=== PATIENT | female | born 1950 | race Caucasian/White ===

== ENCOUNTER 2021-01-26 13:55 | Inpatient (IN) ==
[2021-01-26] MEDS ORDERED: Beer can PO SCH (18:00)
[2021-01-26] MEDS: Melatonin 3 MG TABLET PO SCH (20:18)
[2021-01-27] MEDS: *HR* OxyCODONE/APAP 5/325 TABLET PO PRN ×3 (04:01→18:13)
[2021-01-27 05:59] LABS: Basophils % 1.1 %; Eosinophils % 1.1 %; Hematocrit 26.9 % (35.3-44.9); Hemoglobin 9.2 g/dL (11.5-15.4); Lymphocytes # 0.9 K/mcL (0.6-4.6); Lymphocytes % 33.2 %; Mean Corpuscular HGB Conc 34.2 g/dL (31.6-35.5); Mean Corpuscular Hemoglobin 34.2 pg (28.0-33.3); Mean Platelet Volume 9.2 fL (9.4-12.4); Monocytes # 0.6 K/mcL (0.0-1.3); Monocytes % 19.9 %; Platelet Count 164 K/mcL (140-400); Red Blood Count 2.69 M/mcL (3.82-4.97); Red Cell Distribution Width 13.6 % (11.5-14.5); Segmented Neutrophils % 44.7 %; White Blood Count 2.8 K/mcL (4.3-11.1)
[2021-01-27 06:09] LABS: Neutrophils # 1.3 K/mcL (1.6-8.9)
[2021-01-27 06:10] LABS: BUN/Creatinine Ratio 30 (6-26); Blood Urea Nitrogen 14 mg/dL (8-23); Calcium 7.6 mg/dL (8.6-10.3); Carbon Dioxide 31 mEq/L (23-29); Chloride 99 mEq/L (98-107); Glucose 83 mg/dL (70-105); Osmolality,Calculated 282 (280-300); Potassium 3.3 mEq/L (3.5-5.1); Sodium 136 mEq/L (136-145); eGFR For African Americans > 60 (> 60); eGFR For Non-African Americans > 60 (> 60)
[2021-01-27 06:35] LABS: Platelet Estimate Normal (Normal)
[2021-01-27] MEDS ORDERED: atenoloL 50 MG TABLET PO SCH (09:00)
[2021-01-27] MEDS ORDERED: Sennosides/Docusate Sodium TABLET PO PRN ×2 (09:02→15:18)
[2021-01-27] MEDS: Cyanocobalamin (B-12) 1,000 MCG TABLET PO SCH (09:19)
[2021-01-27] MEDS: Cholecalciferol (D-3) 1,000 UNIT (25MCG) TABLET PO SCH (09:20)
[2021-01-27] MEDS ORDERED: Beer can PO SCH (12:00)
[2021-01-27] MEDS: Folic Acid 1 MG TABLET PO SCH (15:49)
[2021-01-27] MEDS: Beer can PO SCH (18:06)
[2021-01-27] MEDS: Melatonin 3 MG TABLET PO SCH (20:42)
[2021-01-28 04:29] LABS: Alanine Aminotransferase 15 Units/L (7-52); Albumin/Globulin Ratio 0.7 (1.1-2.2); Alkaline Phosphatase 143 Units/L (34-104); Aspartate Amino Transferase 27 Units/L (13-39); BUN/Creatinine Ratio 39 (6-26); Bilirubin,Total 0.7 mg/dL (0.3-1.0); Blood Urea Nitrogen 17 mg/dL (8-23); Calcium 7.9 mg/dL (8.6-10.3); Carbon Dioxide 31 mEq/L (23-29); Chloride 98 mEq/L (98-107); Globulin 2.8 g/dL (2.4-3.5); Glucose 103 mg/dL (70-105); Osmolality,Calculated 280 (280-300); Potassium 4.1 mEq/L (3.5-5.1); Sodium 134 mEq/L (136-145); Total Protein 4.8 g/dL (6.4-8.9); eGFR For African Americans > 60 (> 60); eGFR For Non-African Americans > 60 (> 60)
[2021-01-28] MEDS: *HR* Enoxaparin 40 MG/0.4 ML SYRINGE SQ SCH (06:14)
[2021-01-28] MEDS ORDERED: polyethylene glycoL 3350 17 GM POWD.PACK PO PRN (08:30)
[2021-01-28] MEDS: *HR* OxyCODONE/APAP 5/325 TABLET PO PRN ×2 (10:03→22:14)
[2021-01-28] MEDS: Folic Acid 1 MG TABLET PO SCH (10:04)
[2021-01-28] MEDS: atenoloL 50 MG TABLET PO SCH (10:04)
[2021-01-28] MEDS: Cholecalciferol (D-3) 1,000 UNIT (25MCG) TABLET PO SCH (10:04)
[2021-01-28] MEDS: Cyanocobalamin (B-12) 1,000 MCG TABLET PO SCH (10:04)
[2021-01-28] MEDS: Beer can PO SCH (17:59)
[2021-01-28] MEDS: Melatonin 3 MG TABLET PO SCH (22:14)
[2021-01-29] MEDS: *HR* Enoxaparin 40 MG/0.4 ML SYRINGE SQ SCH (06:50)
[2021-01-29] MEDS: Cholecalciferol (D-3) 1,000 UNIT (25MCG) TABLET PO SCH (09:49)
[2021-01-29] MEDS: Cyanocobalamin (B-12) 1,000 MCG TABLET PO SCH (09:49)
[2021-01-29] MEDS: atenoloL 50 MG TABLET PO SCH (09:49)
[2021-01-29] MEDS: Folic Acid 1 MG TABLET PO SCH (09:49)
[2021-01-29] MEDS: *HR* OxyCODONE/APAP 5/325 TABLET PO PRN ×2 (09:52→21:01)
[2021-01-29] MEDS: Beer can PO SCH (17:09)
[2021-01-29] MEDS: Melatonin 3 MG TABLET PO SCH (20:59)
[2021-01-30] MEDS: *HR* Enoxaparin 40 MG/0.4 ML SYRINGE SQ SCH (05:31)
[2021-01-30] MEDS ORDERED: 0.9 % Sodium Chloride 500 ML IVC ONE (08:41)
[2021-01-30] MEDS: Cyanocobalamin (B-12) 1,000 MCG TABLET PO SCH (09:55)
[2021-01-30] MEDS: Folic Acid 1 MG TABLET PO SCH (09:55)
[2021-01-30] MEDS: Cholecalciferol (D-3) 1,000 UNIT (25MCG) TABLET PO SCH (09:55)
[2021-01-30] MEDS: Beer can PO SCH (17:34)
[2021-01-30] MEDS: *HR* OxyCODONE/APAP 5/325 TABLET PO PRN (19:46)
[2021-01-30] MEDS: Melatonin 3 MG TABLET PO SCH (19:47)
[2021-01-31] MEDS: *HR* Enoxaparin 40 MG/0.4 ML SYRINGE SQ SCH (05:43)
[2021-01-31] MEDS ORDERED: atenoloL 25 MG TABLET PO SCH (09:00)
[2021-01-31] MEDS: Folic Acid 1 MG TABLET PO SCH (09:21)
[2021-01-31] MEDS: Cholecalciferol (D-3) 1,000 UNIT (25MCG) TABLET PO SCH (09:21)
[2021-01-31] MEDS: Cyanocobalamin (B-12) 1,000 MCG TABLET PO SCH (09:21)
[2021-01-31] MEDS: Beer can PO SCH (17:44)
[2021-01-31] MEDS: *HR* OxyCODONE/APAP 5/325 TABLET PO PRN (20:43)
[2021-01-31] MEDS: Melatonin 3 MG TABLET PO SCH (20:43)
[2021-02-01] MEDS: *HR* Enoxaparin 40 MG/0.4 ML SYRINGE SQ SCH (05:40)
[2021-02-01] MEDS: Cyanocobalamin (B-12) 1,000 MCG TABLET PO SCH (08:15)
[2021-02-01] MEDS: Folic Acid 1 MG TABLET PO SCH (08:15)
[2021-02-01] MEDS: Cholecalciferol (D-3) 1,000 UNIT (25MCG) TABLET PO SCH (08:16)
[2021-02-01] MEDS: Acetaminophen 325 MG TABLET PO PRN (17:10)
[2021-02-01] MEDS: Beer can PO SCH (17:57)
[2021-02-01] MEDS: Melatonin 3 MG TABLET PO SCH (20:33)
[2021-02-01] MEDS: *HR* OxyCODONE/APAP 5/325 TABLET PO PRN (20:33)
[2021-02-02] MEDS: *HR* Enoxaparin 40 MG/0.4 ML SYRINGE SQ SCH (05:27)
[2021-02-02] MEDS: Cyanocobalamin (B-12) 1,000 MCG TABLET PO SCH (08:31)
[2021-02-02] MEDS: Cholecalciferol (D-3) 1,000 UNIT (25MCG) TABLET PO SCH (08:31)
[2021-02-02] MEDS: Folic Acid 1 MG TABLET PO SCH (08:31)
[2021-02-02] MEDS: Acetaminophen 325 MG TABLET PO PRN (14:35)
[2021-02-02] MEDS: Beer can PO SCH (17:14)
[2021-02-02] MEDS: Melatonin 3 MG TABLET PO SCH (20:43)
[2021-02-02] MEDS: *HR* OxyCODONE/APAP 5/325 TABLET PO PRN (20:43)
[2021-02-03] MEDS: *HR* Enoxaparin 40 MG/0.4 ML SYRINGE SQ SCH (05:53)
[2021-02-03] MEDS: Cyanocobalamin (B-12) 1,000 MCG TABLET PO SCH (09:07)
[2021-02-03] MEDS: Folic Acid 1 MG TABLET PO SCH (09:08)
[2021-02-03] MEDS: Cholecalciferol (D-3) 1,000 UNIT (25MCG) TABLET PO SCH (09:08)
[2021-02-03] MEDS: Acetaminophen 325 MG TABLET PO PRN (16:27)
[2021-02-03] MEDS: Beer can PO SCH (17:27)
[2021-02-03] MEDS: Melatonin 3 MG TABLET PO SCH (20:50)
[2021-02-03] MEDS: *HR* OxyCODONE/APAP 5/325 TABLET PO PRN (20:50)
[2021-02-04] MEDS: *HR* OxyCODONE/APAP 5/325 TABLET PO PRN ×3 (03:36→20:11)
[2021-02-04] MEDS: *HR* Enoxaparin 40 MG/0.4 ML SYRINGE SQ SCH (05:57)
[2021-02-04] MEDS: Cyanocobalamin (B-12) 1,000 MCG TABLET PO SCH (08:35)
[2021-02-04] MEDS: Cholecalciferol (D-3) 1,000 UNIT (25MCG) TABLET PO SCH (08:35)
[2021-02-04] MEDS: Acetaminophen 325 MG TABLET PO PRN (08:35)
[2021-02-04] MEDS: Folic Acid 1 MG TABLET PO SCH (08:35)
[2021-02-04] MEDS: Beer can PO SCH (17:34)
[2021-02-04] MEDS: Melatonin 3 MG TABLET PO SCH (20:11)
[2021-02-05] MEDS: *HR* Enoxaparin 40 MG/0.4 ML SYRINGE SQ SCH (05:34)
[2021-02-05] MEDS: Folic Acid 1 MG TABLET PO SCH (08:51)
[2021-02-05] MEDS: Cyanocobalamin (B-12) 1,000 MCG TABLET PO SCH (08:51)
[2021-02-05] MEDS: Cholecalciferol (D-3) 1,000 UNIT (25MCG) TABLET PO SCH (08:51)
[2021-02-05] MEDS: Beer can PO SCH (17:53)
[2021-02-05] MEDS: *HR* OxyCODONE/APAP 5/325 TABLET PO PRN (20:06)
[2021-02-05] MEDS: Melatonin 3 MG TABLET PO SCH (20:06)
[2021-02-06] MEDS: *HR* OxyCODONE/APAP 5/325 TABLET PO PRN ×2 (01:59→19:57)
[2021-02-06] MEDS: *HR* Enoxaparin 40 MG/0.4 ML SYRINGE SQ SCH (05:34)
[2021-02-06] MEDS: Cholecalciferol (D-3) 1,000 UNIT (25MCG) TABLET PO SCH (09:51)
[2021-02-06] MEDS: Cyanocobalamin (B-12) 1,000 MCG TABLET PO SCH (09:51)
[2021-02-06] MEDS: Folic Acid 1 MG TABLET PO SCH (09:52)
[2021-02-06] MEDS: Acetaminophen 325 MG TABLET PO PRN (12:06)
[2021-02-06] MEDS ORDERED: Bismuth Subsalicylate 120 ML ORAL SUSPENSION PO PRN (17:55)
[2021-02-06] MEDS: Beer can PO SCH (18:06)
[2021-02-06] MEDS: Melatonin 3 MG TABLET PO SCH (19:57)
[2021-02-07] MEDS: *HR* OxyCODONE/APAP 5/325 TABLET PO PRN ×2 (02:03→19:55)
[2021-02-07] MEDS: *HR* Enoxaparin 40 MG/0.4 ML SYRINGE SQ SCH (05:37)
[2021-02-07] MEDS: Cyanocobalamin (B-12) 1,000 MCG TABLET PO SCH (10:12)
[2021-02-07] MEDS: Acetaminophen 325 MG TABLET PO PRN (10:13)
[2021-02-07] MEDS: Folic Acid 1 MG TABLET PO SCH (10:13)
[2021-02-07] MEDS: Cholecalciferol (D-3) 1,000 UNIT (25MCG) TABLET PO SCH (10:16)
[2021-02-07] MEDS: Beer can PO SCH (17:52)
[2021-02-07] MEDS: Melatonin 3 MG TABLET PO SCH (19:54)
[2021-02-08] MEDS: Acetaminophen 325 MG TABLET PO PRN ×3 (03:10→23:04)
[2021-02-08] MEDS: *HR* Enoxaparin 40 MG/0.4 ML SYRINGE SQ SCH (05:41)
[2021-02-08] MEDS: Cholecalciferol (D-3) 1,000 UNIT (25MCG) TABLET PO SCH (10:09)
[2021-02-08] MEDS: Cyanocobalamin (B-12) 1,000 MCG TABLET PO SCH (10:09)
[2021-02-08] MEDS: Folic Acid 1 MG TABLET PO SCH (10:09)
[2021-02-08] MEDS: Beer can PO SCH (18:00)
[2021-02-08] MEDS: Melatonin 3 MG TABLET PO SCH (20:48)
[2021-02-08] MEDS: *HR* OxyCODONE/APAP 5/325 TABLET PO PRN (20:48)
[2021-02-09 04:25] LABS: Basophils % 0.5 %; Eosinophils # 0.1 K/mcL (0.0-0.6); Eosinophils % 2.3 %; Hematocrit 26.2 % (35.3-44.9); Hemoglobin 8.7 g/dL (11.5-15.4); Immature Granulocytes % 0.5 % (0-4); Lymphocytes # 1.2 K/mcL (0.6-4.6); Lymphocytes % 54.5 %; Mean Corpuscular HGB Conc 33.2 g/dL (31.6-35.5); Mean Corpuscular Hemoglobin 32.8 pg (28.0-33.3); Mean Corpuscular Volume 98.9 fL (83.0-100.0); Mean Platelet Volume 8.7 fL (9.4-12.4); Monocytes # 0.3 K/mcL (0.0-1.3); Monocytes % 14.1 %; Neutrophils # 0.6 K/mcL (1.6-8.9); Platelet Count 245 K/mcL (140-400); Red Blood Count 2.65 M/mcL (3.82-4.97); Red Cell Distribution Width 13.6 % (11.5-14.5); Segmented Neutrophils % 28.1 %; White Blood Count 2.2 K/mcL (4.3-11.1)
[2021-02-09] MEDS: *HR* Enoxaparin 40 MG/0.4 ML SYRINGE SQ SCH (05:35)
[2021-02-09 06:29] LABS: BUN/Creatinine Ratio 5 (6-26); Blood Urea Nitrogen 2 mg/dL (8-23); Calcium 7.8 mg/dL (8.6-10.3); Carbon Dioxide 26 mEq/L (23-29); Chloride 103 mEq/L (98-107); Glucose 74 mg/dL (70-105); Osmolality,Calculated 273 (280-300); Potassium 3.8 mEq/L (3.5-5.1); Sodium 134 mEq/L (136-145); eGFR For African Americans > 60 (> 60); eGFR For Non-African Americans > 60 (> 60)
[2021-02-09 06:50] LABS: Platelet Estimate Normal (Normal)
[2021-02-09] MEDS: Cholecalciferol (D-3) 1,000 UNIT (25MCG) TABLET PO SCH (09:36)
[2021-02-09] MEDS: Cyanocobalamin (B-12) 1,000 MCG TABLET PO SCH (09:36)
[2021-02-09] MEDS: Folic Acid 1 MG TABLET PO SCH (09:36)
[2021-02-09] MEDS: Acetaminophen 325 MG TABLET PO PRN ×2 (09:39→20:32)
[2021-02-09] MEDS: Beer can PO SCH (17:19)
[2021-02-09] MEDS: Melatonin 3 MG TABLET PO SCH (20:32)
[2021-02-10] MEDS: *HR* Enoxaparin 40 MG/0.4 ML SYRINGE SQ SCH (05:37)
[2021-02-10] MEDS: Cholecalciferol (D-3) 1,000 UNIT (25MCG) TABLET PO SCH (09:31)
[2021-02-10] MEDS: Cyanocobalamin (B-12) 1,000 MCG TABLET PO SCH (09:31)
[2021-02-10] MEDS: Folic Acid 1 MG TABLET PO SCH (09:31)
[2021-02-10] MEDS: Acetaminophen 325 MG TABLET PO PRN ×2 (11:03→21:08)
[2021-02-10] MEDS: Bismuth Subsalicylate 120 ML ORAL SUSPENSION PO PRN ×2 (12:06→21:07)
[2021-02-10] MEDS: Beer can PO SCH (17:56)
[2021-02-10] MEDS: Melatonin 3 MG TABLET PO SCH (21:07)
[2021-02-11] MEDS: *HR* Enoxaparin 40 MG/0.4 ML SYRINGE SQ SCH (05:33)
[2021-02-11 07:03] VITALS: BP 147/85
[2021-02-11] MEDS: Folic Acid 1 MG TABLET PO SCH (09:43)
[2021-02-11] MEDS: Cholecalciferol (D-3) 1,000 UNIT (25MCG) TABLET PO SCH (09:43)
[2021-02-11] MEDS: Cyanocobalamin (B-12) 1,000 MCG TABLET PO SCH (09:44)
[2021-02-11] MEDS: Bismuth Subsalicylate 120 ML ORAL SUSPENSION PO PRN (09:46)
== END 2021-02-11 13:00 | disposition home or self-care (01) | DRG 559 ==
LOC: INPPIK → OBSVTOIN 16:44 → INPPIK 01-30 23:38
PROVIDERS: ADMIT Family Medicine; ATTEND Family Medicine